=== PATIENT | female | born 1970 | race Caucasian/White ===

== ENCOUNTER 2020-02-03 15:56 | Emergency (ER) | payer OTHER, SELFPAY ==
[2020-02-03 16:00] VITALS: BP 173/102; PULSE 99; RESP 20; TEMP 36.6; O2SAT 96; BMI 36.0
[2020-02-03 16:03] VITALS: BP 173/102; PULSE 91; O2SAT 96
[2020-02-03 16:30] VITALS: BP 175/95; PULSE 81; O2SAT 97
[2020-02-03] MEDS: diazePAM 5 MG TABLET PO (16:52)
[2020-02-03] MEDS: MORPHINE 4 MG/ML INJ IM (16:52)
--- NOTE | 2020-02-03 17:01 | DI.RAD.S_ITS ---
PROCEDURE: XR THORACIC SPINE 3V INDICATIONS: s/p fell on posterior shoulder/upper back pain TECHNIQUE: 3 views of the thoracic spine were acquired. COMPARISON: None. FINDINGS: Bones: No fractures or subluxation. No suspicious bony lesions. 12 pairs of ribs are noted, and appear intact where visualized. Soft tissues: No paravertebral stripe thickening. IMPRESSION: 1. No fracture or subluxation. Dictated by: Mars Hsu M.D. on 02/03/2020 at 17:31 Approved by: Mars Hsu M.D. on 02/03/2020 at 17:33
--- NOTE | 2020-02-03 17:01 | DI.RAD.S_ITS ---
PROCEDURE: XR SHOULDER LT MIN 2V INDICATIONS: s/p fell on posterior shoulder/upper back pain TECHNIQUE: 3 views of the shoulder were acquired. COMPARISON: None. FINDINGS: Bones: No fractures or dislocations. There is minimal acromioclavicular joint degeneration. No suspicious bony lesions. Visualized ribs appear intact. Soft tissues: No suspicious soft tissue calcifications. IMPRESSION: 1. No fracture or dislocation. Dictated by: Mars Hsu M.D. on 02/03/2020 at 17:31 Approved by: Mars Hsu M.D. on 02/03/2020 at 17:31
--- NOTE | 2020-02-03 17:44 | ED.UPPEXIN ---
HPI - Extremity Injury (Upper) <NELIDA Hernandez - Last Filed: 02/03/20 21:45> General Chief Complaint: Extremity Injury, Upper Stated Complaint: left shoulder pain from a fall Time Seen by Provider: 02/03/20 16:13 Source: patient Mode of arrival: Ambulatory Limitations: no limitations History of Present Illness HPI narrative: This is a 49 year female, nonsmoker, who presents to ED with significant other with chief complain of non dominant arm, left posterior shoulder, upper back pain after she had mechanical ground fall at 1:15pm. Patient was walking into her car and accidentally stepped on a puddle of water while craddling a cat on left arm and landed on her left upper back and shoulder. Patient already has some limited range of motion on left shoulder for couple of months with pain. She has been stretching and exercising at home since Covid and had difficult time visiting a doctor. Patient denies injuring other areas including head. Patient denies headache, neck pain. Patient states initially her left fingers were numb but this has been resolved and reports intact sensation. Patient reports pain is excruciating with certain type movements and tolerable when patient tucks the left arm into her side. Patient denies pain in her elbow, wrist, hand in left arm. Patient had taken 3 tabs of Tylenol 650 shortly after injury. Related Data Previous Rx's Medication Instructions Recorded cyclobenzaprine 10 mg PO BEDTIME PRN #7 tab 02/03/20 hydrocodone-acetaminophen [[place]] 1 tab PO Q8H PRN #10 tab 02/03/20 lidocaine 1 patch TOP DAILY #30 each 02/03/20 ondansetron 4 mg PO BID-TID PRN #7 tab 02/03/20 Allergies Allergy/AdvReac Type Severity Reaction Status Date / Time hydrocodone [From Vicodin] AdvReac Mild upsets Verified 02/03/20 21:39 stomach Review of Systems <NELIDA Hernandez - Last Filed: 02/03/20 21:45> Review of Systems Narrative: General: Denies fever, chills, fatigue, malaise, sweats. HEENT: Denies sinus pain, ear pain, sore throat, difficulty swallowing, dizziness. Respiratory: Denies dyspnea, cough, wheezing, hemoptysis, sputum. Cardiovascular: Denies chest pain, palpitations, orthopnea, edema. Gastrointestinal: Denies nausea, vomiting, abdominal pain, diarrhea, constipation, melena. : Denies dysuria, frequency, incontinence, hematuria, urinary retention. Musculoskeletal: See HPI Skin: Denies rash, skin lesions, or other. Neurologic: Denies weakness, headache, numbness, change in speech, confusion, seizures, incoordination. Psychiatric: No concerning psychosocial issues. 12-point review of systems is negative except for those stated above. Patient History <NELIDA Hernandez - Last Filed: 02/03/20 21:45> Medical History (Updated 02/03/20 @ 19:50 by NELIDA Hernandez) No significant past medical history (Acute) Surgical History (Updated 02/03/20 @ 17:48 by NELIDA Hernandez) No pertinent past surgical history (Acute) Social History Smoking Status: Never smoker Smoking Status: Never smoker alcohol intake frequency: 0-2 drinks per day Substance Use Type: does not use Exam <NELIDA Hernandez - Last Filed: 02/03/20 21:45> Narrative Exam Narrative: General appearance: well developed, well nourished, in moderate to severe pain when she moved left arm. Head: normocephalic, atraumatic, no scalp lesions, non-tender. ENT: Hearing grossly intact. Nose without bleeding, purulent discharge, septal hematoma or deviation. Turbinate without erythema or swelling. Facial sinuses nontender to palpate. Mucous membrane moist, no mucosal lesion. Throat without erythema, tonsillar hypertrophy or exudate. Uvula in midline, airway patent. Neck/Thyroid: neck supple, full range of motion, no step-offs, no visible masses or meningeal signs. No JVD, non-tender without lymphadenopathy. Skin: no suspicious rashes, lesions over visible areas. Warm and dry and appropriate color for ethnicity. Heart: no clubbing, no cyanosis, no edema. S1 and S2 normal. RRR w/o murmurs, clicks, or bruits. Lungs: Breathing even and unlabored. No stridor. No accessory muscles used. Able to speak in full sentences. Chest: normal shape and expansion. Abdomen: non-obese, non-distended. Neurologic: alert and oriented. Cognitive exam, [employer] LENS and PNS grossly intact on informal exam. Psych: good eye contact, normal affect. Initial Vital Signs Initial Vital Signs: Vital Signs Temperature 97.9 F 02/03/20 16:00 Pulse Rate 99 H 02/03/20 16:00 Respiratory Rate 20 02/03/20 16:00 Blood Pressure 173/102 H 02/03/20 16:00 Pulse Oximetry 96 02/03/20 16:00 Extrem Left upper extremity: shoulder/upper arm Details: inspection abnormal, tenderness Location: of the scapula, axillary nerve sensory function normal and abnormal ROM; no swelling, no ecchymosis, no deformity and no unsual warmth, elbow/forearm Details: normal to inspection; no tenderness and no swelling and hand Details: normal to inspection, normal capillary refill, neuromotor exam normal, neurosensory exam normal, vascular exam Details: radial pulse present and normal capillary refill and normal ROM of fingers <Samreen Smith MD - Last Filed: 02/04/20 01:15> Initial Vital Signs Initial Vital Signs: Vital Signs Temperature 97.9 F 02/03/20 16:00 Pulse Rate 99 H 02/03/20 16:00 Respiratory Rate 20 02/03/20 16:00 Blood Pressure 173/102 H 02/03/20 16:00 Pulse Oximetry 96 02/03/20 16:00 Scores <NELIDA Hernandez - Last Filed: 02/03/20 21:45> GCS [place] coma scale eye opening: Spontaneous [place] coma scale verbal response: Orientated [place] coma scale motor response: Obey commands [place] coma scale total score: 15 Course <NELIDA Hernandez - Last Filed: 02/03/20 21:45> Orders Ordered: ED Orders 02/03/20 17:01 XR shoulder LT min 2V Stat XR thoracic spine 3V Stat 02/03/20 18:07 CT UE LT wo con Stat Discontinued Medications Diazepam (Valium) 5 mg PO NOW ONE Stop: 02/03/20 16:43 Last Admin: 02/03/20 16:52 Dose: 5 mg Documented by: RADHA Morphine Sulfate (Morphine) 4 mg IM NOW ONE Stop: 02/03/20 16:43 Last Admin: 02/03/20 16:52 Dose: 4 mg Documented by: RADHA Reevaluation(s) Reevaluation #1: The patient reports improved pain on her left side upper back after 2 medications. However, when reassessed with palpation, patient continue to have exquisite pain. Consulted Dr. Smith and it was recommended CT test to rule out fractures on scapula Time: 18:20 Vital Signs Vital signs: Vital Signs - 8 hr 02/03/20 18:14 02/03/20 19:59 Pulse Rate 79 75 Respiratory Rate 18 Blood Pressure 156/83 H 129/90 Pulse Oximetry 100 100 <Samreen Smith MD - Last Filed: 02/04/20 01:15> Orders Ordered: ED Orders 02/03/20 17:01 XR shoulder LT min 2V Stat XR thoracic spine 3V Stat 02/03/20 18:07 CT UE LT wo con Stat Discontinued Medications Diazepam (Valium) 5 mg PO NOW ONE Stop: 02/03/20 16:43 Last Admin: 02/03/20 16:52 Dose: 5 mg Documented by: RADHA Morphine Sulfate (Morphine) 4 mg IM NOW ONE Stop: 02/03/20 16:43 Last Admin: 02/03/20 16:52 Dose: 4 mg Documented by: RADHA Vital Signs Vital signs: Vital Signs - 8 hr 02/03/20 18:14 02/03/20 19:59 Pulse Rate 79 75 Respiratory Rate 18 Blood Pressure 156/83 H 129/90 Pulse Oximetry 100 100 MDM - Extremity Injury (Upper) <NELIDA Hernandez - Last Filed: 02/03/20 21:45> Differential Diagnosis Differential diagnosis: Likely dislocation of shoulder and other (Scapula fracture, thoracic fracture, rib fracture, shoulder fracture, contusions) Medical Records Attestation: I reviewed the patient's medical records. Imaging Data XR-Shoulder: Radiologist's Impression: [address] [address] XRay Report Signed Patient: Dulce Pedraza#: [id number] : 1970Acct:[id number] Age/Sex: 49 / FDate of Service: 02/03/20 Loc: ED Accession Number: [id number] Procedure: XR shoulder LT min 2V Ordering Provider: Justo Wild PROCEDURE: XR SHOULDER LT MIN 2V INDICATIONS: s/p fell on posterior shoulder/upper back pain TECHNIQUE: 3 views of the shoulder were acquired. COMPARISON: None. FINDINGS: Bones: No fractures or dislocations. There is minimal acromioclavicular joint degeneration. No suspicious bony lesions. Visualized ribs appear intact. Soft tissues: No suspicious soft tissue calcifications. IMPRESSION: 1. No fracture or dislocation. Dictated by: Mars Hsu M.D. on 02/03/2020 at 17:31 Approved by: Mars Hsu M.D. on 02/03/2020 at 17:31 XR-Thoracic spine: Radiologist's Impression: [place] [address] XRay Report Signed Patient: Dulce Pedraza#: [id number] : 1970Acct:[id number] Age/Sex: 49 / FDate of Service: 02/03/20 Loc: ED Accession Number: [id number] Procedure: XR thoracic spine 3V Ordering Provider: Justo Wild PROCEDURE: XR THORACIC SPINE 3V INDICATIONS: s/p fell on posterior shoulder/upper back pain TECHNIQUE: 3 views of the thoracic spine were acquired. COMPARISON: None. FINDINGS: Bones: No fractures or subluxation. No suspicious bony lesions. 12 pairs of ribs are noted, and appear intact where visualized. Soft tissues: No paravertebral stripe thickening. IMPRESSION: 1. No fracture or subluxation. Dictated by: Mars Hsu M.D. on 02/03/2020 at 17:31 Approved by: Mars Hsu M.D. on 02/03/2020 at 17:33 CT-Upper EXT LT: Radiologist's Impression: [address] [address] [address] Scan Report Signed Patient: Letty Pedrazajesi#: [id number] : 1970Acct:[id number] Age/Sex: 49 / FDate of Service: 02/03/20 Loc: ED Accession Number: [id number] Procedure: CT UE LT wo con Ordering Provider: Justo Wild PROCEDURE: CT UE LT WO CON INDICATIONS: left scapula region pain, s/p fall. TECHNIQUE: Noncontrast 1-1.5 mm thick sections acquired from the acromioclavicular joint to the inferior scapula, with coronal and sagittal reformatting. COMPARISON: [facility], CR, XR SHOULDER LT MIN 2V, 02/03/2020, 16:56. FINDINGS: Image quality: Excellent. Bones: No definite fracture or dislocation. There is mild degeneration of the left glenohumeral joint. Visualized ribs appear intact. Soft tissues: There is a small left glenohumeral joint effusion. The rotator cuff tendons appear grossly intact, with evaluation limited on CT. IMPRESSION: 1. No definite fracture or dislocation. 2. Small left glenohumeral joint effusion. If clinical concern persists, further evaluation may be obtained with MRI. Dictated by: Mars Hsu M.D. on 02/03/2020 at 18:44 Approved by: Mars Hsu M.D. on 02/03/2020 at 18:48 MDM Narrative Medical decision making narrative: This is a 49 year female presents to ED after she had mechanical fall by slipped in a puddle of water and landed on her left side thoracic/scapula/shoulder region. She denies injuring her neck, head or areas. Intact sensation, pulses distally and able to move all fingers. No pain in elbow, wrist or hand. Pain increases with movement of abduction, adduction, and elevation. Exquisite tenderness to palpate in scapular region even by very light touch. Left shoulder, thoracic xray tests were negative for acute findings. Due to patient's exquisite pain, CT of left upper extremities including scapula added and no evidence of definite fracture or dislocation but small left inguinal humeral joint effusion. Patient's pain improved after the medication administration in ED. affected shoulder has been placed on sling/immobilizer for comfort. Advised to use cool pack next couple of days. Instructed to do gentle stretching of affected shoulder/arm to prevent frozen shoulder. Patient provided with [facility] health Resource phone number to arrange primary care physician and also [facility] orthopedic office number has been provided if pain does not improve as expected. Patient and spouse verbalized understanding and agreement with the treatment plan. Discharge Plan Departure Patient Disposition: Home Clinical Impression: Contusion of shoulder and upper arm Back pain Qualifiers: Back pain location: thoracic back pain Chronicity: acute Back pain laterality: left Qualified Code(s): M54.6 - Pain in thoracic spine Discharge Date/Time: 02/03/20 20:01 Instructions: DI for Shoulder Sprain, DI for Thoracic Back Pain Activity Restrictions/Additional Instructions: You have been diagnosed with [left shoulder, left thoracic contusion from a fall. Left upper extremity CT does not show definite fracture or dislocation but small joint effusion. No dislocation of left shoulder or rib fractures were seen in x-ray test.]. What to do: *Take your medications as directed. [facility] You were medicated with IM injection of morphine, Valium. Affected arm has placed done sling/immobilizer for discomfort. Please start gentle stretching as soon as acute pain improves to prevent frozen shoulder. For severe pain you can take [place], narcotic medication, as needed. [place] has Tylenol mixed in it so please take precaution taking additional Tylenol. As an adult you can take up to 4000 mg of Tylenol in 24 hour. Ibuprofen/Naprosyn is another good medication to decrease inflammation and help with pain. Please take it with food to decrease stomach irritation. 400-600 mg ibuprofen up to 3 times a day as needed. Flexeril is muscle relaxant. Flexeril and [place] can cause drowsiness so please take precaution not driving, drinking alcohol or operating heavy equipments. Please avoid taking together. Lidocaine patch on affected site as needed for pain. This stays on for 12 hours and off for 12 hours. If this is too expensive, you can purchase [id number] for% lidocaine patch to use it. *Follow up with your primary care provider in 2-3 days, call for an appointment. Let them know you were seen in the ED and that we asked you to be seen in follow up. *Return to ED if you have any new, worsening, or concerning symptoms, such as [worsening pain, chest pain, breathing difficulty, unable to tolerate fluids, increasing warmth/redness/tingling/numbness/weakness to affected arm or any acute concerns]. Prescriptions: New cyclobenzaprine 10 mg tablet 10 mg PO BEDTIME PRN (Reason: muscle spasm) Qty: 7 RF: 0 hydrocodone-acetaminophen [[place]] 5-325 mg tablet 1 tab PO Q8H PRN (Reason: pain) Qty: 10 RF: 0 lidocaine 5 % adhesive patch,medicated 1 patch TOP DAILY Qty: 30 RF: 0 ondansetron 4 mg tablet,disintegrating 4 mg PO BID-TID PRN (Reason: nausea and vomiting) Qty: 7 RF: 0 Referrals: [facility] [Provider Group] [facility] [Outside] <Samreen Smith MD - Last Filed: 02/04/20 01:15> Cosign ED Attending Cosignature Attestation: I was immediately available in the department for consultation throughout this patient's visit. I agree with documentation as above. Samreen Smith MD
--- NOTE | 2020-02-03 18:07 | DI.CT.S_ITS ---
PROCEDURE: CT UE LT WO CON INDICATIONS: left scapula region pain, s/p fall. TECHNIQUE: Noncontrast 1-1.5 mm thick sections acquired from the acromioclavicular joint to the inferior scapula, with coronal and sagittal reformatting. COMPARISON: [facility], CR, XR SHOULDER LT MIN 2V, 02/03/2020, 16:56. FINDINGS: Image quality: Excellent. Bones: No definite fracture or dislocation. There is mild degeneration of the left glenohumeral joint. Visualized ribs appear intact. Soft tissues: There is a small left glenohumeral joint effusion. The rotator cuff tendons appear grossly intact, with evaluation limited on CT. IMPRESSION: 1. No definite fracture or dislocation. 2. Small left glenohumeral joint effusion. If clinical concern persists, further evaluation may be obtained with MRI. Dictated by: Mars Hus M.D. on 02/03/2020 at 18:44 Approved by: Mras Hsu M.D. on 02/03/2020 at 18:48
[2020-02-03 18:14] VITALS: BP 156/83; PULSE 79; RESP 18; O2SAT 100
[2020-02-03 19:59] VITALS: BP 129/90; PULSE 75; O2SAT 100
== END 2020-02-03 20:01 | disposition home or self-care (01) ==
PROVIDERS: Emergency Provider Nurse Practitioner Family
DX: M54.6 Pain in thoracic spine (principal); S40.012A Contusion of left shoulder, initial encounter; S40.022A Contusion of left upper arm, initial encounter; W19.XXXA Unspecified fall, initial encounter
CPT/HCPCS: 72072; 73030; 73200; 96372; 99284; J2270

== ENCOUNTER → 2024-01-14 10:32 | Outpatient (CLI) | payer OTHER, SELFPAY | PROVIDERS: Family Provider Obstetrics & Gynecology; Referring Provider Student in an Organized Health Care Education/Training Program; Visit Provider Student in an Organized Health Care Education/Training Program | DX: N89.8 Other specified noninflammatory disorders of vagina (principal) | CPT/HCPCS: 87210 ==